=== PATIENT | female | born 1980 | race American Indian/Alaskan Native ===

== ENCOUNTER 2020-06-22 14:39 | Outpatient (CLI) | payer OTHER ==
--- NOTE | 2020-06-22 15:55 | Mammography Report ---
DIGITAL SCREENING MAMMOGRAM WITH CAD, 06/22/2020 CLINICAL INFORMATION / INDICATION: Routine screening mammography. TECHNIQUE: Digital bilateral 2D mammography was obtained in the craniocaudal and mediolateral obliqu e projections. This examination was interpreted with the benefit of Computer-Aided Detection analysis . COMPARISON: 02/04/2015 FINDINGS: Breast Density: The breasts are heterogeneously dense, which may obscure small masses. No dominant mass, suspicious calcifications, or architectural distortion in either breast. IMPRESSION: No mammographic evidence of malignancy. Follow up recommendation: Routine yearly BI-RADS Category 1: Negative. A "normal" or negative report should not discourage follow up or biopsy of a clinically significant f inding. A written summary of these findings will be mailed to the patient. The patient will be entered into a mammography reporting system which will generate a reminder letter for the patient's next appointmen t at the appropriate interval. The [employer] recommends yearly mammograms starting at age 40 and continuing as l akin as a woman is in good health. Breast MRI is recommended for women with an approximate 20-25% or greater lifetime risk of breast cancer, including women with a strong family history of breast or ova obdulio cancer or who have been treated for Hodgkin's disease. Signer Name: Loly Cerrato MD Signed: 06/22/2020 3:50 PM Workstation Name: [email or web address]
== END 2020-06-22 14:40 | disposition home or self-care (01) ==
LOC: MAMMO 14:39
PROVIDERS: ATTEND Obstetrics & Gynecology
DX: Z12.31 Encounter for screening mammogram for malignant neoplasm of breast (principal); N64.89 Other specified disorders of breast
CPT/HCPCS: 77067

== ENCOUNTER 2020-11-09 06:11 | Day surgery (SDC) | payer OTHER ==
[2020-11-07 10:08] LABS: Eosinophils % (Auto) 0.9 % (0.0-4.3); Hematocrit 34.3 % (30.3-42.9); Lymphocytes # (Auto) 1.1 K/mm3 (1.2-5.4); Lymphocytes % (Auto) 27.7 % (13.4-35.0); Mean Corpuscular HGB Conc 32 % (30-34); Mean Corpuscular Volume 83 fl (79-97); Monocytes # (Auto) 0.3 K/mm3 (0.0-0.8); Monocytes % (Auto) 7.9 % (0.0-7.3); Platelet Count 253 K/mm3 (140-440); Red Blood Count 4.14 M/mm3 (3.65-5.03); Red Cell Distribution Width 16.2 % (13.2-15.2)
[2020-11-07 10:21] LABS: BUN/Creatinine Ratio 7; Blood Urea Nitrogen 6 mg/dL (7-17); Calcium 9.7 mg/dL (8.4-10.2); Hemolysis Index 2
--- NOTE | 2020-11-07 11:02 | Anesthesia Consultation ---
Anesthesia Consult and Med Hx Date of service: 11/09/20 - Airway Anesthetic Teeth Evaluation: Good, Bridges (lower right) ROM Head & Neck: Adequate Mental/Hyoid Distance: Adequate Mallampati Class: Class II Intubation Access Assessment: Probably Good - Pre-Operative Health Status ASA Pre-Surgery Classification: ASA2 Proposed Anesthetic Plan: General - Pulmonary Hx Smoking: Yes (occasional hookah smoker) Hx Respiratory Symptoms: No - Cardiovascular System Hx Hypertension: No (denies dx but BP elevated in preassessment) Hx Heart Attack/AMI: No Hx Percutaneous Transluminal Coronary Angioplasty (PTCA): No - Central Nervous System CVA: No - Endocrine Hx Renal Disease: No Hx Liver Disease: No Hx Insulin Dependent Diabetes: No Hx Non-Insulin Dependent Diabetes: No Hx Thyroid Disease: No - Other Systems Hx Obesity: Yes (BMI 33) - Additional Comments Anesthesia Medical History Comments: No prior GA or FHx anesthetic complications. BP elevated in preassessment, patient asymptomatic. Denies any prior HTN diagnosis and reports normal BP readings at all recent surgical office visits. Attributes this to anxiety about upcoming surgery and stressful events occuring today specifically. Patient has access to BP monitor and was instructed to continue to monitor pressures until surgery.
--- NOTE | 2020-11-07 15:23 | History and Physical Report ---
History of Present Illness Date of examination: 11/02/20 History of present illness: Patient has been reassessed/reevaluated. H&P has been reviewed. No interval changes. This is a 40 years old female who presents with menstrual disorder. The symptoms began 4-6 months ago. She complains of irregular menses, heavy bleeding, dysmenorrhea, clotting, history of fibroids, fatigue and cramping, but denies mid-cycle spotting, lack of menses, history of ovarian cysts, history of thyroid disease, history of PCOS, history of bleeding disorder and lightheadedness. Interval between menses is 26 days and 30 days. Menstrual flow lasts 5 days and > 7 days. Patient reports that for pain she uses ibuprofen. Patient's work up has included hysterosonogram with a benign endometrial biopsy and revealed multiple leiomyomas. Patient's symptoms when present disrupts her normal daily activities ] Vital Signs: Patient Profile: 40 Years Old Female LMP: 10/24/2020 Height: 62 inches (157.48 cm) Weight: 182 pounds BMI: 33.28 Temp: 96.8 degrees F BP sittin / 80 (left arm) Menstrual History: LMP (date): 10/24/2020 On BCP's at conception: no Current Method of Contraception: BTL Date of Last Mammogram: 06/02/2020 Date of Last Pap Smear: 05/31/2020 Past History : 2 Term Births: 2 Premature Births: 0 Living Children: 2 Para: 2 Mult. Births: 0 Prev : 2 Aborta: 0 Elect. Ab: 0 Spont. Ab: 0 Ectopics: 0 Current Allergies (reviewed today): No known allergies Past Medical History: Anemia Fibroids Past Surgical History: (2002) with Tubal Ligation (2005) Family History Summary: Legacy Family History Notes: Family History Breast Cancer MGGM diagnosed in her 30's No Family History of Colon Cancer No Family History of Ovarvian Cancer No Family History of DVT/PE on OCP Social History: Patient is Smoking History: Patient has never smoked. 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 of genital herpes: yes Hx of STD: HSV Review of Systems General Complains of fatigue. Denies fever, chills, sweats, anorexia, weakness, malaise, weight loss and sleep disorder. Complains of menorrhagia, pelvic pain and painful periods. Denies vaginal discharge, incontinence, dysuria, hematuria, urinary frequency, amenorrhea, abnormal vaginal bleeding, genital sores, decreased libido, painful sex, urinary urgency, hot flashes, vaginal dryness, vaginal itching and vaginal odor. CV Denies chest pains, palpitations, syncope, dyspnea on exertion, orthopnea, PND and peripheral edema. Resp Denies cough, dyspnea at rest, excessive sputum, hemoptysis, wheezing and pleurisy. GI Denies nausea, vomiting, diarrhea, constipation, change in bowel habits, abdominal pain, melena, hematochezia, jaundice, gas/bloating, indigestion/heartburn, dysphagia and odynophagia. Breast Denies left breast lump, right breast lump, nipple discharge, bloody discharge from nipple, breast pain, abnormal mammogram and breast enlargement. Psych Denies depression, anxiety, irritability and mood swings. Past History Past Medical History: other (SEE HPI FOR DETAILS) Past Surgical History: Other (SEE HPI FOR DETAILS) Social history: full code, other (SEE HPI FOR DETAILS) Family history: other (SEE HPI FOR DETAILS) Medications and Allergies Allergies Allergy/AdvReac Type Severity Reaction Status Date / Time No Known Allergies Allergy Unverified 11/06/20 11:04 Home Medications Medication Instructions Recorded Confirmed Last Taken Type Iron 325 mg PO DAILY 11/06/20 11/09/20 11/08/20 09:00 History Loratadine 10 mg PO PRN 11/06/20 11/06/20 Unknown History Active Meds: Active Medications Acetaminophen (Acetaminophen 500 Mg Tab) 1,000 mg PO PREOP FIDENCIO Stop: 11/09/20 20:00 Fentanyl (Fentanyl 100 Mcg/2 Ml Inj) 100 mcg IV ONCE PRN PRN Reason: sedation for nerve block Stop: 11/09/20 20:00 Gabapentin (Gabapentin 300 Mg Cap) 300 mg PO PREOP NR Stop: 11/09/20 23:00 Cefazolin Sodium (Ancef/Sterile Water 2 Gm/20 Ml) 2 gm in 20 mls @ 80 mls/hr IV PREOP NR; Protocol Stop: 11/09/20 20:00 Lactated Ringer's (Lactated Ringers) 1,000 mls @ 100 mls/hr IV DIRECT FIDENCIO Stop: 11/09/20 23:59 Midazolam HCl (Midazolam 2 Mg/2 Ml Inj) 2 mg IV PREOP NR Stop: 11/09/20 20:00 Scopolamine (Scopolamine Transdermal Patch 72 Hr) 1 each TD PREOP NR Stop: 11/09/20 20:00 Review of Systems Constitutional: other (SEE HPI FOR DETAILS) Exam - Physical Exam Narrative exam: HEENT: normocephalic, no lesions or deformities Skin no ulcers, xanthomas Chest: respiratory effort normal, clear to auscultation CV: regular, normal S1-S2, no murmur, no rub, no gallop Abdomen: soft, non-tender, no masses, healed incisons Neuro: no gross anomalities Extremities: no edema 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 No evidence of cystocele or rectocele. Cervix: normal appearance, no lesions, no discharge Uterus: fixed, retroverted vs posterior fibroid Adnexae: no masses or tenderness Rectovaginal: exam defered Results - Labs CBC & Chem 7: 11/07/20 06:00 11/07/20 06:00 Labs: Abnormal lab results 11/07/20 11/07/20 Range/Units 06:00 06:00 WBC 4.0 L (4.5-11.0) K/mm3 MCH 27 L (28-32) pg RDW 16.2 H (13.2-15.2) % Sanders % (Auto) 7.9 H (0.0-7.3) % Lymph # (Auto) 1.1 L (1.2-5.4) K/mm3 BUN 6 L (7-17) mg/dL Assessment and Plan - Patient Problems (1) Intramural leiomyoma of uterus Current Visit: No Status: Acute Plan to address problem: Diagnosis explained to patient . Questions answered. Patient's symptoms when present disrupts her normal daily activities Patient desires definitive treatment Discussed with patient various medical, surgical and radiological therapies common for treatment including expectant management, myomectomy hysterectomy and uterine artery embolization Patient desires robotic assisted total hysterectomy. Consent reviewed and signed . The risks and alternatives for this surgery were reviewed with the patient. Discuss the risks of the surgery including infection, bleeding possibly heavy enough to require a blood transfusion, possible damage to bowel, bladder or ureter. Patient understand that this surgery with make her sterile.Patient understands if her ovaries are removed she will become menopausal. Also if unable to complete robitcally a lapa rotomy may be required. Patient understands and desires to proceed. (2) Chronic pelvic pain in female Current Visit: No Status: Acute Plan to address problem: Probably secondary to # 1 (3) Dysmenorrhea Current Visit: No Status: Acute Plan to address problem: Probably secondary to # 1 (4) Anemia Current Visit: No Status: Acute Qualifiers: Iron deficiency anemia type: chronic blood loss
[~2020-11-09 06:11] MED LIST: ACETAMINOPHEN 500 MG TAB PO SCH; GABAPENTIN 300 MG CAP PO NR; LACTATED RINGERS 1,000 ML IV SCH; MIDAZOLAM 2 MG/2 ML INJ IV NR; SCOPOLAMINE TRANSDERMAL PATCH 72 HR TD NR; fentaNYL 100 MCG/2 ML INJ IV PRN
[2020-11-09] MEDS ORDERED: ceFAZolin/Water 2 GM/20 ML 2 GM/20 ML SYRINGE IV NR (07:00)
[2020-11-09] MEDS ORDERED: KETOROLAC 30 MG/1 ML INJ ONE (07:11)
[2020-11-09] MEDS ORDERED: ROCURONIUM 50 MG/5 ML INJ IV ONE ×3 (07:11→10:47)
[2020-11-09] MEDS ORDERED: ONDANSETRON 4 MG/2 ML INJ ONE (07:11)
[2020-11-09] MEDS ORDERED: dexAMETHasone 20 MG/5 ML VIAL ONE (07:11)
[2020-11-09] MEDS ORDERED: KETAMINE/STERILE WATER 50 MG/ML SYRINGE ONE (07:11)
[2020-11-09] MEDS ORDERED: propofoL 200 MG/20 ML VIAL IV ONE (07:11)
[2020-11-09] MEDS ORDERED: BUPIVACAINE/PF (0.25%) 2.5 MG/ML 30 ML VIAL INFILTRATI ONE (07:16)
[2020-11-09] MEDS ORDERED: dexAMETHasone 4 MG/ML VIAL ONE (07:16)
[2020-11-09] MEDS ORDERED: cloNIDine/PF 1,000 MCG/10 ML VIAL EP ONE (07:16)
[2020-11-09] MEDS ORDERED: NEOMY 40 MG/POLYMYXIN B 200,000 UNITS/ML (GU) AMPULE IR ONE ×2 (07:23→08:35)
--- NOTE | 2020-11-09 07:42 | Anesthesia Day of Surgery ---
Anesthesia Day of Surgery - Day of Surgery Patient Examined: Yes Patient H&P Reviewed: Yes Patient is NPO: Yes
[2020-11-09] MEDS ORDERED: HYDROmorphone 1 MG/1 ML INJ IV PRN (08:00)
[2020-11-09] MEDS ORDERED: oxyCODONE /ACETAMINOPHEN 5-325MG TAB PO PRN (08:00)
[2020-11-09] MEDS ORDERED: ONDANSETRON 4 MG/2 ML INJ IV PRN (08:00)
[2020-11-09] MEDS ORDERED: CITRIC ACID-SOD CITRATE 500 ML IV ONE (08:21)
[2020-11-09] MEDS ORDERED: PHENYLEPHRINE/NS 1,000 MCG/10 ML SYRINGE (OR USE) IV ONE (08:29)
[2020-11-09] MEDS ORDERED: SODIUM CHLORIDE 0.9% IRRIG SOLN 2000 ML IR ONE (08:34)
[2020-11-09] MEDS ORDERED: SODIUM CHLORIDE 0.9% IRR 1,500 ML BOTTLE IR ONE (08:41)
[2020-11-09] MEDS ORDERED: CITRIC ACID-SOD CITRATE SOLN 500 ML IV SOLN IV ONE (08:41)
[2020-11-09] MEDS ORDERED: LACTATED RINGERS 1,000 ML ONE (08:53)
[2020-11-09] MEDS ORDERED: METHYLENE BLUE 50 MG/10 ML AMP ONE (09:30)
[2020-11-09] MEDS ORDERED: ePHEDrine SULFATE 50 MG/1 ML INJ ONE (09:35)
[2020-11-09] MEDS ORDERED: METHYLENE BLUE 50 MG/10 ML AMP IRRIGATION ONE (09:35)
--- NOTE | 2020-11-09 11:18 | Operative Report ---
Operative Report Operative Report: Date of procedure: November 09, 2020 Pre-operative diagnosis: Symptomatic leiomyomata with pelvic pain, dysmenorrhea, menorrhalgia and anemia Post-operative diagnosis: Same plus pelvic adhesive disease Procedure name(s):Robotic Assisted Total Hysterectomy with bilateral salpingectomy with lysis of adhesions Surgeon: Jaguar De La Rosa MD [employer]: Minerva Toledo, certified nurse Anesthesia: General EBL: 50 cc Complications: None Findings: Patient with a uterus approximately 14 to 16weeks in size with multiple leiomyomata largest approximately 8 cm with post. Fundal physician. Had normal-appearing ovaries bilaterally. A dense adhesions between the anterior abdominal wall and anterior uterus between the anterior abdominal wall bladder and the bladder and the anterior uterus. Additional adhesions between the left adnexa and the anterior abdominal wall. Patient did have a cyst on the left ovary right ovary is within normal limits Specimen(s): Uterus including cervix and bilateral fallopian tubes Procedure: Patient was brought to the operating room where general anesthesia was induced without difficulty. Patient was placed in the dorsal lithotomy position. Prepped and draped in the usual sterile manner for robotic procedure. Mckeon catheter was placed without difficulty. Speculum was placed in the vagina. A medium V-Care Uterine manipulator was placed without difficulty. Attention was now switched to the patient's abdomen. A vertical supra-umbilicus incision was made with a scalpel. A 10-12 trocar was placed in this incision under direct visualization. Intra-abdominal placement was verified with no evidence of internal organ damage. The patient pelvic findings were noted as above. It was determined that the patient was a candidate for robotic procedure. On both sides the umbilical incision at about 8 cm, incisions were made for robotic trocars. Each robotic trocar was placed under direct visualization with no evidence of internal organ damage. One 5 mm trocar was placed 2 fingerbreadths above the right iliac crest. A 5 mm camera was placed in the right lower quadrant trocar, the 10-12 trocar was removed and a Juan Miguel Mendez laparoscopic port closure device was placed through this incision under direct visualization with no evidence of internal organ damage. The camera was then replaced into this port. At this time the patient was placed in extreme Trendelenburg. The [employer] robot was then docked on the patient's left side. The trocars connected to the robot appropriately robotic instruments were placed under direct visualization no evidence of internal organ damage.. At this time I took my place under the robotic operating meyers. Using the robotic scissors start lysis of adhesions between the anterior uterus and anterior abdominal wall just taken down both sharply and bluntly until I approached an area near the bladder were clear distinction to could not be identified. Therefore I am proceeded to perform the salpingectomy and also secured the uterine vessels. Starting on the patient's right side the ureter was identified and found to be out of the operative field. Using the robotic vessel sealer the mesosalpinx under the fallopian tube were cauterized and cut starting from the distal end. Utero- ovarian complex was then cauterized and cut. This was followed by cauterizing and cutting the right fallopian tube and right round ligament. The broad ligament was then opened. The bladder flap was formed anteriorly as best I could with the restrictions of the adhesions anteriorly. A window was then clearly seen between the symphysis pubis and bladder. The posterior broad ligament was then excised. The uterine vessels were skeletonized. The ureter was clearly seen out of the operative field. The bladder was pushed away from the anterior uterus. The right uterine vessels were then cauterized and cut. Attention was then switched to the patient's left side. The same procedure was repeated on the left side with perform the salpingectomy followed by isolating the uterine vessels cauterized and cutting and completing the bladder dissection from the left side. At this time the uterus was appearing very cyanotic. At this time placed 180 cc of diluted methylene blue and and patient bladder to better identify this location. I resumed lysis of adhesions with removing the bladder from the anterior uterine wall with no evidence of damage to the bladder. There is no spillage of dye throughout the procedure. At this time I performed myomectomy removing the large myoma by first incising the serosa and then with identified plane sharply and bluntly removed the myoma from the uterus rendering it at collapsed to improve on ability to remove it through the colpotomy. After inspecting the bladder flap to insured no evidence of bladder injury, the colpotomy was then started. Incision started at 6:00 until the V- Care could be seen. This incision was extended from 6:00 to 9:00. Then from 6:00 to 3:00. Then from 9:00 to 12:00. This incision was extended from 3:00 to 12:00. At this time colpotomy was complete with no evidence of adjacent organ damage. The removed myoma was then attempt to remove the colpotomy and found to be too large to removed. I then excised the myoma and to 2 pieces there were removed through the colpotomy by the assistant manager pt. The assistant manager pt remove the uterus from through the colpotomy site. The vaginal cuff was irrigated and cauterized and found to be hemostatic. The cuff was closed with roboticly using 0 V- Lock suture. This closure was hemostatic after irrigation and Bovie. All pedicles were inspected and found to be hemostatic. The ureters were identified bilaterally and found to be functioning normal. The patient had clear urine in the Mckeon catheter with no evidence of mixture with blood. Removed further thick adhesions from the bladder and the anterior abdominal wall. Interceed was placed over the lysis of adhesion area and attempt to try to prevent future adhesions. Louise was placed on the cuff and pedicles for postoperative hemostasis . All instruments were then removed. The large trocar sites were closed in layers 2-0 Vicryl and 4-0 Monocryl. The smaller incisions were closed subcuticularly with 4-0 Monocryl. Dermabond was placed over the skin incisions. The patient tolerated procedure well. She was awakened in the operating room and accompanied to the recovery room in good condition.
[2020-11-09] MEDS ORDERED: GLYCOPYRROLATE 0.4 MG/2 ML INJ ONE (11:35)
[2020-11-09] MEDS ORDERED: NEOSTIGMINE 10MG/10 ML INJ MDV ONE (11:35)
[2020-11-09] MEDS ORDERED: ACETAMINOPHEN 325 MG TAB PO PRN (12:00)
[2020-11-09] MEDS ORDERED: HYDROcodone/ACETAMINOPHEN 5-325 MG TAB PO PRN (12:00)
--- NOTE | 2020-11-09 12:59 | Post Anesthesia Evaluation ---
- Post Anesthesia Evaluation Patient Participated: Yes Airway Patent: Yes Stable Respiratory Function: Yes Nausea/Vomiting: No Temp > 96.8F: Yes Pain Manageable: Yes Adequeate Hydration: Yes Anesthesia Complications: No
[2020-11-09] MEDS ORDERED: ceFAZolin 1 GM VIAL ONE (13:58)
[2020-11-09] MEDS ORDERED: ceFAZolin/NS 1 GM/50 ML 1 GM/50 ML BAG IV ONE (14:00)
--- NOTE | 2020-11-09 14:58 | Short Stay Summary ---
Short Stay Documentation Date of service: 11/09/20 - History Principal diagnosis: Symptomatic leiomyomata H&P: dictated Past Medical History: other (SEE HPI FOR DETAILS) Past Surgical History: Other (SEE HPI FOR DETAILS) Social history: full code, other (SEE HPI FOR DETAILS) - Allergies and Medications Current Medications: Allergies No Known Allergies Allergy (Unverified 11/06/20 11:04) Home Medications Medication Instructions Recorded Confirmed Last Taken Type Iron 325 mg PO DAILY 11/06/20 11/09/20 11/08/20 09:00 History Loratadine 10 mg PO PRN 11/06/20 11/06/20 Unknown History Fluconazole [Diflucan TAB] 150 mg PO QDAY #2 tablet 11/09/20 Unknown Rx Ibuprofen [Motrin] 800 mg PO TID PRN #30 tablet 11/09/20 Unknown Rx metroNIDAZOLE [Flagyl] 500 mg PO Q12HR #14 tab 11/09/20 Unknown Rx oxyCODONE /ACETAMINOPHEN [Percocet 1 - 2 tab PO Q6HR PRN #20 tablet 11/09/20 Unknown Rx 5/325 mg] Active Medications Acetaminophen (Acetaminophen 500 Mg Tab) 1,000 mg PO PREOP FIDENCIO Stop: 11/09/20 20:00 Last Admin: 11/09/20 06:30 Dose: 1,000 mg Documented by: Acetaminophen (Acetaminophen 325 Mg Tab) 650 mg PO Q4H PRN PRN Reason: Pain MILD(1-3)/Fever >100.5/GAMBLE Hydrocodone Bitart/Acetaminophen (Hydrocodone/Acetaminophen 5-325 Mg Tab) 2 each PO Q6H PRN PRN Reason: Pain, Moderate (4-6) Fentanyl (Fentanyl 100 Mcg/2 Ml Inj) 100 mcg IV ONCE PRN PRN Reason: sedation for nerve block Stop: 11/09/20 20:00 Last Admin: 11/09/20 07:18 Dose: 100 mcg Documented by: Gabapentin (Gabapentin 300 Mg Cap) 300 mg PO PREOP NR Stop: 11/09/20 23:00 Last Admin: 11/09/20 06:30 Dose: 300 mg Documented by: Hydromorphone HCl (Hydromorphone 1 Mg/1 Ml Inj) 0.5 mg IV Q10MIN PRN PRN Reason: Pain , Severe (7-10) Stop: 11/09/20 18:00 Cefazolin Sodium (Ancef/Sterile Water 2 Gm/20 Ml) 2 gm in 20 mls @ 80 mls/hr IV PREOP NR; Protocol Stop: 11/09/20 20:00 Lactated Ringer's (Lactated Ringers) 1,000 mls @ 100 mls/hr IV DIRECT FIDENCIO Stop: 11/09/20 23:59 Last Admin: 11/09/20 06:45 Dose: 100 mls/hr Documented by: Midazolam HCl (Midazolam 2 Mg/2 Ml Inj) 2 mg IV PREOP NR Stop: 11/09/20 20:00 Last Admin: 11/09/20 07:18 Dose: 2 mg Documented by: Ondansetron HCl (Ondansetron 4 Mg/2 Ml Inj) 4 mg IV ONCE PRN PRN Reason: Nausea And Vomiting Stop: 11/09/20 18:00 Oxycodone/Acetaminophen (Oxycodone /Acetaminophen 5-325mg Tab) 1 tab PO ONCE PRN PRN Reason: Pain, Moderate (4-6) Stop: 11/09/20 18:00 Scopolamine (Scopolamine Transdermal Patch 72 Hr) 1 each TD PREOP NR Stop: 11/09/20 20:00 Last Admin: 11/09/20 06:30 Dose: 1 each Documented by: - Physical exam General appearance: no acute distress Integumentary: no rash HEENT: Atraumatic Lungs: Normal air movement Breasts: deferred Heart: Regular rate Gastrointestinal: hypoactive bowel sounds, tenderness (Appropriate for postop), distended (Appropriate for day of surgery) Female Genitourinary: normal Rectal Exam: deferred Extremities: no ischemia Neurological: Normal speech, Strength at 5/5 X4 ext - Brief post op/procedure progress note Date of procedure: 11/09/20 (See dictated operative note for details) Condition: stable - Hospital course Hospital course: Patient was admitted underwent the above him procedure without any complications. Patient was admitted and underwent above procedure without complications. Her post operative extended recovery observation course was benign she was afebrile throughout. Patient had no orthostatic symptoms. Patient was tolerating diet and voiding without difficulty at time of discharge. Patient incision was healing well without evidence of infection. Patient will be discharged with follow-up in office in 1-2 weeks for postop check - Disposition Condition at discharge: Good Disposition: 01 HOME / SELF CARE / HOMELESS - Discharge Diagnoses (1) Intramural leiomyoma of uterus Status: Acute (2) Chronic pelvic pain in female Status: Acute (3) Dysmenorrhea Status: Acute (4) Anemia Status: Acute Qualifiers: Iron deficiency anemia type: chronic blood loss Short Stay Discharge Plan Activity: advance as tolerated Diet: regular Wound: open to air Additional Instructions: REMOVE SCOPOLAMINE PATCH BEHIND LEFT EAR IN 24-72 HOURS=USE GLOVES AND WASH HANDS. Follow up with: PRIMARY CARE, [Primary Care Provider] - 7 Days Forms: Outpatient Surgery DC Inst. Prescriptions: Fluconazole [Diflucan TAB] 150 mg PO QDAY #2 tablet metroNIDAZOLE [Flagyl] 500 mg PO Q12HR #14 tab Ibuprofen [Motrin] 800 mg PO TID PRN #30 tablet PRN Reason: Pain oxyCODONE /ACETAMINOPHEN [Percocet 5/325 mg] 1 - 2 tab PO Q6HR PRN #20 tablet PRN Reason: Pain
[2020-11-09 15:37] VITALS: BP 110/75
== END 2020-11-09 15:55 | disposition home or self-care (01) ==
LOC: OR 06:11
PROVIDERS: ATTEND Obstetrics & Gynecology
DX: D25.1 Intramural leiomyoma of uterus (principal); N94.6 Dysmenorrhea, unspecified; E66.9 Obesity, unspecified; K21.9 Gastro-esophageal reflux disease without esophagitis; D64.9 Anemia, unspecified; F17.210 Nicotine dependence, cigarettes, uncomplicated; Z98.51 Tubal ligation status; Z98.890 Other specified postprocedural states; Z79.899 Other long term (current) drug therapy; Z68.33 Body mass index [BMI] 33.0-33.9, adult; Z20.822 Contact with and (suspected) exposure to COVID-19
CPT/HCPCS: 36415; 58573; 64488; 80048; 84703; 85025; 86850; 86900; 86901; 88302; 88307; A4217; J0690; J0735; J1100; J1885; J2250; J2370; J2405; J2704; J2710; J3010; J3490; J7120; Q9968; S2900; U0003; 64450